=== PATIENT | female | born 1955 | race Caucasian/White ===

== ENCOUNTER 2021-03-02 11:33 | Emergency (ER) | payer MEDICARE, BC ==
[~2021-03-02] VITALS: Ht 167.6 cm; Wt 74.8 kg
--- NOTE | 2021-03-02 12:03 | NUR ---
The patient is bibpa, from snf, for GT replacement, s/p accidentally pulled out her GT. Abdomen soft and non-distended. Respiration regular and unlabored. Will continue to monitor the patient.
[2021-03-02] MEDS ORDERED: DIATR MEGLU/DIATRIZOATE SODIUM 30 ML BOTTLE (GASTROGRAPHIN) ONE (12:22)
--- NOTE | 2021-03-02 13:52 | NUR ---
CALLED [facility] FOR TRANSPORT TO [facility]. ETA 60 MINUTES.
--- NOTE | 2021-03-02 14:54 | NUR ---
REPORT GIVEN TO AMBULANCE STAFF AND RECEIVING FACILITY NURSE DOMINGO. THE PATIENT IN DISCHARGED FROM ER IN STABLE CONDITION VIA ARRANGED TRANSPO.
[2021-03-02 14:55] VITALS: BP 137/82
== END 2021-03-02 14:55 ==
LOC: ER 11:37
DX: K94.23 Gastrostomy malfunction (principal); F03.90 Unspecified dementia, unspecified severity, without behavioral disturbance, psychotic disturbance, mood disturbance, and anxiety; K21.9 Gastro-esophageal reflux disease without esophagitis; F41.9 Anxiety disorder, unspecified; F32.9 Major depressive disorder, single episode, unspecified; Z88.0 Allergy status to penicillin; Z88.6 Allergy status to analgesic agent
CPT/HCPCS: 43762; 74018; 99284; Q9963